=== PATIENT | male | born 1940 | race Caucasian/White ===

== ENCOUNTER 2018-05-14 17:46 | Emergency (ER) | payer OTHER ==
[2018-05-14 18:25] LABS: #Basophils 0.1 thou/uL (0.0-0.2); #Eosinphils 0.2 thou/uL (0.0-0.7); #Lymphocytes 1.3 thou/uL (1.20-3.40); #Monocytes 0.6 thou/uL (0.11-0.59); #Neutrophils 5.5 thou/uL (1.40-6.50); %Basophils 0.8 % (0.0-1.0); %Eosinophils 2.2 % (0.0-10.0); %Monocytes 8.2 % (0.0-10.0); %Neutrophils 71.8 % (42.0-75.0); Mean Corpuscular HGB CONC 34.4 g/dL (32.0-36.0); Mean Corpuscular Hemoglobin 33.4 pg (27.0-31.0); Mean Corpuscular Volume 97.2 fL (78.0-98.0); Platelet Count 220 thou/uL (130-400); RBC Distribution Width 12.7 % (11.5-14.5); Red Blood Cell (RBC) Count 4.49 mill/uL (4.70-6.10); White Blood Cell (WBC) Count 7.6 thou/uL (4.8-10.8)
[2018-05-14 18:35] LABS: ALT (SGPT) 33 U/L (8-55); AST (SGOT) 24 U/L (5-34); Albumin 4.8 g/dL (3.4-4.8); Alkaline Phosphatase 160 U/L (40-150); Anion Gap 14 mmol/L (10-20); BUN (Urea Nitrogen) 28 mg/dL (8.4-25.7); Bilirubin, Total 0.8 mg/dL (0.2-1.2); Calc. Creatinine Clearance 0 mL/min (70-130); Calcium 10.6 mg/dL (7.8-10.44); Carbon Dioxide 28 mmol/L (23-31); Chloride 100 mmol/L (98-107); Estimated GFR-MDRD 51; Glucose 147 mg/dL (83-110); Potassium 5.2 mmol/L (3.5-5.1); Protein, Total 8.8 g/dL (5.8-8.1); Sodium 137 mmol/L (136-145)
--- NOTE | 2018-05-14 19:45 | RAD ---
CHEST TWO VIEWS: 05/14/18 Comparison is made with the 03/22/15 study. The heart is moderately enlarged but there are no findings of CHF at the moment. There is no congesti on or pleural effusion. No major lobar infiltrate was seen. there is a slight amount of retrocardiac streaking. The lungs are otherwise clear. Median sternotomy sutures are present from prior surgery. IMPRESSION: 1. Cardiomegaly without congestive change. 2. Slight retrocardiac streaking. POS: HOME
[2018-05-14] MEDS ORDERED: Aspirin Chewable 81 MG TAB ONE (20:25)
[2018-05-14] MEDS ORDERED: cefTRIAXone\\ROCEPHIN 1 GM VIAL ONE (20:25)
[2018-05-14] MEDS ORDERED: Azithromycin 500 MG VIAL ONE (20:25)
[2018-05-14] MEDS ORDERED: [UNRECOGNIZED DRUG - OTHER] ONE (20:26)
[2018-05-14] MEDS ORDERED: Sodium Chloride 0.9% 100 ML ONE (20:27)
--- NOTE | 2018-05-14 20:30 | CT ---
CT ANGIO OF THE CHEST 05/14/[address] of the chest was performed for evaluation of possible pulmonary embolism. Axial slices were acquired after a bolus of IV contrast, then reconstructions in various planes through the pulmonary arteries were obtained. There is excellent opacification of the arterial system. No defects were seen to suggest pulmonary em boli. The aorta showed no sign of aneurysm or dissection. The heart is globally enlarged, particularl y the atria. There is no pericardial fluid. Coronary artery calcifications are seen, particularly in the left coronary circulation. There is some perihilar and peribronchial adenopathy bilaterally, more so on the right than the left. Some of the bronchi going to the lower lobes seem to stay larger than expected more peripherally th an expected, thus, mild bronchiectasis is assumed. There is a little bit of basilar haziness in each lower lobe suggestive of atelectasis. It is a little more focal in the right lower lobe so could be a combination of atelectasis and/or early infiltrate. There are two small right middle lobe nodules each of which are in the 6 to 7 mm range of size. They are somewhat smooth. Typically the recommendation would be to watch them and follow them up within on e year unless the patient was known to have cancer or other diseases that would prompt sooner scannin g. Scans into the upper abdomen showed no adrenal nodules. The visible portions of the liver and spleen appear normal, as did the pancreas. There are stones in the neck of the gallbladder without any gallb ladder distention. IMPRESSION: 1. No evidence of pulmonary embolism. 2. Some perihilar and peribronchial adenopathy, more on the right than the left. 3. Two 6 mm nodules in the right middle lobe, neither of which are particularly worrisome at the moment. They should be followed with a repeat scan in 6 to 12 months. 4. Some accentuation of the lower lobe markings bilaterally with evidence of some mild bronchiec tasis. Mild infectious changes here are possible. Changes are a little more prominent in the right lo wer lobe than the left. 5. Coronary arteriosclerosis, particularly in the left coronary system. 6. Stones in the neck of the gallbladder without evidence of gallbladder distention. POS: HOME
== END 2018-05-14 21:40 | disposition home or self-care (01) ==
LOC: BURERS 17:46
DX: R91.8 Other nonspecific abnormal finding of lung field (principal); R79.89 Other specified abnormal findings of blood chemistry; I48.91 Unspecified atrial fibrillation; E11.9 Type 2 diabetes mellitus without complications; K21.9 Gastro-esophageal reflux disease without esophagitis; N40.0 Benign prostatic hyperplasia without lower urinary tract symptoms; E78.5 Hyperlipidemia, unspecified; I10 Essential (primary) hypertension; Z79.84 Long term (current) use of oral hypoglycemic drugs; Z79.899 Other long term (current) drug therapy; Z79.82 Long term (current) use of aspirin
CPT/HCPCS: 71046; 71275; 80053; 83605; 83880; 84484; 85025; 85379; 87040; 93005; 94760; J0456; J0696; J7050

== ENCOUNTER 2018-08-25 18:15 | Emergency (ER) | payer OTHER ==
[2018-08-25 18:42] LABS: #Lymphocytes 0.4 thou/uL (1.20-3.40); #Monocytes 0.5 thou/uL (0.11-0.59); #Neutrophils 8.8 thou/uL (1.40-6.50); %Basophils 0.4 % (0.0-1.0); %Eosinophils 0.4 % (0.0-10.0); %Lymphocytes 4.5 % (21.0-51.0); %Monocytes 4.9 % (0.0-10.0); %Neutrophils 89.9 % (42.0-75.0); Hemoglobin 14.2 g/dL (14.0-18.0); Mean Corpuscular HGB CONC 32.6 g/dL (32.0-36.0); Mean Corpuscular Hemoglobin 32.9 pg (27.0-31.0); Mean Platelet Volume 6.3 fL (7.4-10.4); Platelet Count 138 thou/uL (130-400); RBC Distribution Width 12.6 % (11.5-14.5); Red Blood Cell (RBC) Count 4.32 mill/uL (4.70-6.10); White Blood Cell (WBC) Count 9.8 thou/uL (4.8-10.8)
[2018-08-25 18:53] LABS: INR-International Normal Ratio 1.3; Prothrombin Time 15.9 SEC (12.0-14.7)
[2018-08-25 18:54] LABS: PTT 28.6 SEC (22.9-36.1)
[2018-08-25 19:00] LABS: ALT (SGPT) 18 U/L (8-55); AST (SGOT) 17 U/L (5-34); Albumin 4.5 g/dL (3.4-4.8); Alkaline Phosphatase 93 U/L (40-150); Anion Gap 20 mmol/L (10-20); BUN (Urea Nitrogen) 22 mg/dL (8.4-25.7); Bilirubin, Total 1.6 mg/dL (0.2-1.2); CK (CPK) 39 U/L (30-200); Calc. Creatinine Clearance 0 mL/min (70-130); Calcium 9.8 mg/dL (7.8-10.44); Carbon Dioxide 22 mmol/L (23-31); Chloride 103 mmol/L (98-107); Estimated GFR-MDRD 54; Glucose 214 mg/dL (83-110); Potassium 4.7 mmol/L (3.5-5.1); Protein, Total 7.5 g/dL (5.8-8.1); Sodium 140 mmol/L (136-145)
[2018-08-25] MEDS ORDERED: Acetaminophen 500 MG TAB ONE (20:25)
--- NOTE | 2018-08-25 23:10 | RAD ---
AP PORTABLE CHEST: 08/25/2018 1922 HOURS COMPARISON: 05/14/2018 FINDINGS: The heart remains mildly enlarged but unchanged. There is no congestive change or pleural effusion. The lungs are clear. IMPRESSION: Cardiomegaly but no acute findings. POS: HOME
== END 2018-08-25 20:27 | disposition home or self-care (01) ==
LOC: BURERS 18:15
DX: T67.5XXA Heat exhaustion, unspecified, initial encounter (principal); K52.9 Noninfective gastroenteritis and colitis, unspecified; I25.10 Atherosclerotic heart disease of native coronary artery without angina pectoris; I48.91 Unspecified atrial fibrillation; E11.9 Type 2 diabetes mellitus without complications; K21.9 Gastro-esophageal reflux disease without esophagitis; I10 Essential (primary) hypertension; Z79.84 Long term (current) use of oral hypoglycemic drugs; Z79.82 Long term (current) use of aspirin; Z79.899 Other long term (current) drug therapy
CPT/HCPCS: 71045; 80053; 82550; 84484; 85025; 85610; 85730; 93005; 96360